=== PATIENT | female | born 1935 | race African-American/Black ===

== ENCOUNTER 2019-05-12 12:59 | Inpatient (IN) | payer MEDICARE, OTHER ==
[~2019-05-12] VITALS: Ht 149.9 cm; Wt 62.4 kg
[2019-05-12 12:59] VITALS: BP 214/100
[~2019-05-12 12:59] MED LIST: AMLODIPINE BESY10 MG ORAL; ATORVASTATIN CA40 MG ORAL; CATAPRES-TTS-21 EA TDERMAL; LOSARTAN-HCTZ1 EAC1 ORAL; METOPROLOL SUCC50 MG ORAL; MINOXIDIL2.5 MG PO; NKM
--- NOTE | 2019-05-12 13:01 | NUR ---
ED Nurse Note: pt brought in to ER from home by ambulance due to abdominal pain 10/16. pt aao x4 and bedridden at this moment. calm and cooperative. skin clean and intact. large hernia on lower abdoman noted. per pt, she has had that since she gave to the last son but could not recall the year. per pt, it has been more than 30 years. no acute distress noted at this moment. no N/V/D at this moment. pt is in gown and on secured entrance monitor. high blood pressure and hernia reported to ERPA.
--- NOTE | 2019-05-12 13:10 | NUR ---
ED Nurse Note: x-ray at bedside.
[2019-05-12] MEDS ORDERED: Omnipaque-300 100ml vial INJ PRN ×2 (13:15)
[2019-05-12] MEDS ORDERED: Ketorolac 30mg Inj IV ONE (13:15)
[2019-05-12 13:33] LABS: EOSINOPHILS % (AUTO) 0.1 % (0.0-3.0); HEMATOCRIT 41.5 % (37.0-47.0); HEMOGLOBIN 13.9 G/DL (12.0-16.0); LYMPHOCYTES % (AUTO) 11.8 % (20.0-45.0); MEAN CORPUSCULAR VOLUME 94 FL (80-99); MONOCYTES % (AUTO) 7.4 % (1.0-10.0); NEUTROPHILS % (AUTO) 79.7 % (45.0-75.0); PLATELET COUNT 175 K/UL (150-450); RED BLOOD COUNT 4.42 M/UL (4.20-5.40); RED CELL DISTRIBUTION WIDTH 12.1 % (11.6-14.8); WHITE BLOOD COUNT 9.9 K/UL (4.8-10.8)
--- NOTE | 2019-05-12 13:37 | Diagnostic Imaging Report ---
Indication: Chest and abdominal pain Comparison: 07/22/2015 A single view chest radiograph was obtained. Findings: No definite infiltrate or pulmonary vascular congestion identified. The heart is enlarged. The aorta is mildly enlarged consistent with atherosclerotic vascular disease. The bones are osteopenic. Impression: No acute disease
[2019-05-12 13:54] LABS: ANION GAP 11 mmol/L (5-15); BLOOD UREA NITROGEN 32 mg/dL (7-18); CALCIUM 10.3 MG/DL (8.5-10.1); CARBON DIOXIDE 36 MMOL/L (21-32); CHLORIDE 98 MMOL/L (98-107); CREATININE 1.8 MG/DL (0.55-1.30); POTASSIUM 3.7 MMOL/L (3.5-5.1); SODIUM 145 MMOL/L (136-145)
[2019-05-12 14:00] LABS: ALANINE AMINOTRANSFERASE 13 U/L (12-78); ALBUMIN 4.3 G/DL (3.4-5.0); ALBUMIN/GLOBULIN RATIO 0.8 (1.0-2.7); ALKALINE PHOSPHATASE 55 U/L (46-116); ASPARTATE AMINO TRANSFERASE 32 U/L (15-37); BILIRUBIN,TOTAL 0.6 MG/DL (0.2-1.0)
--- NOTE | 2019-05-12 14:01 | NUR ---
ED Nurse Note: pt taken to CT scan in stable condition.
--- NOTE | 2019-05-12 14:15 | NUR ---
ED Nurse Note: pt came back from CT scan in stable condition.
[2019-05-12 14:25] LABS: APPEARANCE,URINE CLOUDY; BILIRUBIN, URINE NEGATIVE (NEGATIVE); GLUCOSE, URINE (UA) NEGATIVE (NEGATIVE); KETONES,URINE 1+ (NEGATIVE); LEUKOCYTE ESTERASE ,URINE 2+ (NEGATIVE); NITRITE,URINE NEGATIVE (NEGATIVE); PH,URINE 7 (4.5-8.0); PROTEIN,URINE 3+ (NEGATIVE); UROBILINOGEN,URINE 1 MG/DL (0.0-1.0)
[2019-05-12 14:27] LABS: COLOR,URINE YELLOW
--- NOTE | 2019-05-12 14:40 | Emergency Room Report ---
History of Present Illness General Chief Complaint: Abdominal Pain Source: EMS (Tejas Craig) Present Illness HPI 83-year-old female with history of hypertension, diabetes who reports has not been taking any blood pressure medication or diabetes medication for many months now as well as an enlarged ventral abdominal hernia here complaining of 1 day of a 10 out of 10 abdominal pain with one bout of nonbloody emesis. Denies diarrhea and constipation however reports of feeling fluctuant. Denies fever and chills, chest pain, shortness of breath, palpitation, headache and dizziness. Has not taken any medication for symptom relief. Patient reports that her hernia has been increasing in size for many years now has been told that he needs to go on her operation has refused so. 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 Patient denies any urinary symptoms. Denies history of tobacco smoke, alcohol intake, or drug use. Patient' pcp is Dr. mari. Patient presents to ER with blood pressure of 218/111. (Tejas Craig) Allergies: Coded Allergies: NO KNOWN ALLERGIES (Unverified Allergy, Unknown, 07/22/15) Patient History Past Medical History: see triage record Past Surgical History: unable to obtain Pertinent Family History: none Now: No Immunizations: UTD Reviewed Nursing Documentation: PMH: Agreed; PSxH: Agreed (Tejas Craig) Nursing Documentation-PMH Past Medical History: No History, Except For Hx Cardiac Problems: Yes Hx Hypertension: Yes Hx Cancer: No Hx Gastrointestinal Problems: No Hx Neurological Problems: No Hx Cerebrovascular Accident: Yes (Tejas Craig) Review of Systems All Other Systems: negative except mentioned in HPI (Tejas Craig) Physical Exam Vital Signs Date Time Temp Pulse Resp B/P (MAP) Pulse Ox O2 Delivery O2 Flow Rate FiO2 05/12/19 12:50 97.9 88 17 201/103 (135) 98 Room Air Sp02 EP Interpretation: reviewed, abnormal - elevated BP General Appearance: alert, GCS 15, mild distress, thin Head: normocephalic, atraumatic Eyes: left eye other - blind ENT: hearing grossly normal, normal pharynx, no angioedema, normal voice Neck: full range of motion, supple, thyroid normal, no meningismus, no bony tend, no carotid bruits, supple/symm/no masses Respiratory: chest non-tender, lungs clear, normal breath sounds, no rhonchi, no wheezing, speaking full sentences Cardiovascular #1: regular rate, rhythm, no edema, no murmur, normal capillary refill Cardiovascular #2: 2+ carotid (R), 2+ carotid (L), 2+ radial (R), 2+ radial (L) Gastrointestinal: normal bowel sounds, non tender, soft, no guarding, no rebound, distended, hernia - enlarged ventral Rectal: deferred Genitourinary: no CVA tenderness Musculoskeletal: back normal, gait/station normal, normal range of motion, non- tender, no calf tenderness Neurologic: alert, oriented x3, responsive, motor strength/tone normal, sensory intact, speech normal Psychiatric: judgement/insight normal, memory normal, mood/affect normal, no suicidal/homicidal ideation Skin: no rash Lymphatic: no adenopathy (Tejas Craig) Medical Decision Making PA Attestation All my diagnosis and treatment plans were reviewed ad discussed with my supervising physician Dr. Ch (Tejas Craig) Medicare Attestation The history of Ericka Valles has been reviewed and management options for her have been examined and discussed by Srikanth Mcdonald. I have personally examined and interviewed the patient. (Srikanth Mcdonald MD) Diagnostic Impression: Primary Impression: Obstructed ventral hernia Additional Impressions: Elevated brain natriuretic peptide (BNP) level UTI (urinary tract infection) ER Course 83-year-old female with history of hypertension, diabetes who reports has not been taking any blood pressure medication or diabetes medication for many months now as well as an enlarged ventral abdominal hernia here complaining of 1 day of a 10 out of 10 abdominal pain with one bout of nonbloody emesis. Denies diarrhea and constipation however reports of feeling fluctuant. Denies fever and chills, chest pain, shortness of breath, palpitation, headache and dizziness. Has not taken any medication for symptom relief. Patient reports that her hernia has been increasing in size for many years now has been told that he needs to go on her operation has refused so. 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 Patient denies any urinary symptoms. Denies history of tobacco smoke, alcohol intake, or drug use. Patient' pcp is Dr. mari. Patient presents to ER with blood pressure of 218/111. Ddx considered but are not limited to: appendicitis, cholecystis, gastritis, gastroenteritis, UTI, pyelonephritis, SBO, diverticulitis, incarcerated hernia, nonreducible hernia, reducible hernia Vital signs: are WNL, pt. is afebrile H&PE are most consistent with: Obstructing ventral hernia, elevated BNP ORDERS: abdominal CT, abdominal pain set, EKG, troponin ED INTERVENTIONS: NS bolus, Pepcid, Toradol Patient was admitted with diagnosis of to under supervision of Dr.: Michael pt stable at time of admission (Tejas Craig) ER Course i evaluated this patient with MUSA Pittman. I agree with her management and decision to admit the patient for renal insufficiency and bowel obstruction secondary to hernia. Dr Bee contacted. Dr Mari contacted for admission. (Srikanth Mcdonald MD) EKG Diagnostic Results Rate: normal Rhythm: NSR ST Segments: no acute changes Other Impression No acute ST changes (Tejas Craig) Chest X-Ray Diagnostic Results Chest X-Ray Diagnostic Results : Chest X-Ray Ordered: Yes # of Views/Limited/Complete: 1 View Indication: Other EP Interpretation: Yes PA Xray: Interpretation reviewed, by supervising MD, and agrees with findings. Interpretation: no consolidation, no effusion, no pneumothorax Impression: No acute disease Electronically Signed by: Tejas Cutler PA-C (Tejas Craig) CT/MRI/US Diagnostic Results CT/MRI/US Diagnostic Results : Imaging Test Ordered: CT abd pelvis Impression Obstructed ventral hernia (Tejas Craig) Last Vital Signs Date Time Temp Pulse Resp B/P (MAP) Pulse Ox O2 Delivery O2 Flow Rate FiO2 05/12/19 14:21 97.9 05/12/19 13:32 215/100 05/12/19 12:59 88 17 Room Air 05/12/19 12:59 98 (Tejas Craig) Status: improved (Srikanth Mcdonald MD) Disposition: ADMITTED INPATIENT Condition: Serious Tejas Craig May 12, 2019 14:40 Srikanth Mcdonald MD May 12, 2019 16:32
--- NOTE | 2019-05-12 14:41 | Diagnostic Imaging Report ---
Indication: Abdominal pain Technique: Continuous helical transaxial imaging of the abdomen and pelvis was obtained from the lung bases to the pubic symphysis. No intravenous contrast was administered. Coronal 2-D reformats were also obtained. Automatic Exposure Control was utilized. Total Dose length Product (DLP): 724.[address] Dose Index Volume (CTDIvol): 13.8 mGy Comparison: none Findings: There is a large ventral hernia containing much of the stomach, duodenum, loops of proximal small bowel and the entirety of the right hemicolon and transverse colon. The hernia sac is about 20 x 20 x 11 cm. The aperture or neck of the hernia at the level of the abdominal wall is about 5 x 6 cm. There is moderate distention of the proximal portion of the stomach which includes the cardia fundus and part of the body which is also quite distended. There may be partial obstruction secondary to the hernia at the level of the stomach. However the small bowel loops appear normal in caliber both proximal and distal to the hernia. There is moderate stool demonstrated in the colon which also does not appear obstructive. There is no pneumatosis or free air. There is no evidence of abscess. The aorta is moderately calcified. There are calcifications within the liver and spleen consistent with old granulomatous disease. Gallbladder is unremarkable. There are hypodensities within both kidneys not adequately evaluated but probably cysts. There is no hydronephrosis. Diverticula noted in the sigmoid colon. The lung bases are essentially clear. Atrophic uterus noted. IMPRESSION: Large ventral hernia containing most of the stomach, small bowel and much of the proximal colon. The proximal stomach not contained within the hernia is dilated and therefore there may be some impediment to flow or partial obstruction at the level of the stomach. Suggest nasogastric tube placement. 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 Diverticulosis of the sigmoid colon. The CT scanner at [facility] is accredited by the [employer] and the scans are performed using dose optimization techniques as appropriate to a performed exam including Automatic Exposure control.
[2019-05-12 15:00] VITALS: BP 221/95
[2019-05-12 15:48] VITALS: BP 180/75
[2019-05-12] MEDS ORDERED: cefTRIAXone 1 GM in NS 55 ML IVPB ONE (16:00)
[2019-05-12] MEDS ORDERED: ZANTAC150 MG ORAL (16:26)
[2019-05-12] MEDS ORDERED: FERROUS SULFAT325 M2 ORAL (16:26)
[2019-05-12] MEDS ORDERED: NORVASC10 MG ORAL (16:26)
--- NOTE | 2019-05-12 16:43 | NUR ---
ED Nurse Note: Surgeon Rohit at bedside.
--- NOTE | 2019-05-12 16:55 | NUR ---
ED Nurse Note: report given to ARTHUR Payne by Jae Ortega RN
--- NOTE | 2019-05-12 17:05 | Consultation ---
History of Present Illness General Date patient seen: May 12, 2019 Reason for Hospitalization: Abdominal Pain Present Illness HPI This is a very pleasant 83-year-old female with multiple medical comorbidities who presented to the emergency department at [facility] complaining of abdominal cramping nausea and emesis. Patient states that yesterday morning she began to have some abdominal cramping followed by intermittent nausea and a few episodes of nonbloody emesis. Patient lives at home with her son and assisted by her daughter who is currently present in the emergency department. She has intermittent episodes occasionally of similar events but this 1 felt to be worse and came in for evaluation. States last bowel movement was yesterday normal but has not had one since. Feels constipated. Has not had significant flatus. In ED had a CT scan with large ventral hernia with bowel stomach and colonic contents. Surgery called to evaluate and assist with care. Patient seen, patient evaluated, chart reviewed. Allergies: Coded Allergies: NO KNOWN ALLERGIES (Unverified Allergy, Unknown, 07/22/15) Medication History Scheduled Amlodipine Besylate (Norvasc), 10 MG ORAL DAILY, (Reported) Amlodipine Besylate* (Amlodipine Besylate*), 10 MG ORAL DAILY, (Reported) Atorvastatin Calcium* (Atorvastatin Calcium*), 80 MG ORAL BEDTIME, (Reported) Clonidine HCl (Catapres-Tts 2), 1 PATCH TDERMAL QWEEK Metoprolol Succinate* (Metoprolol Succinate*), 50 MG ORAL QHS, (Reported) Ranitidine Hcl* (Zantac*), 150 MG ORAL DAILY, (Reported) Miscellaneous Medications Ferrous Sulfate (Ferrous Sulfate), 325 MG ORAL, (Reported) Patient History History Provided By: Patient, Family Member, Medical Record, PMD Healthcare decision maker Resuscitation status Advanced Directive on File Past Medical/Surgical History Past Medical/Surgical History: (1) Non-ST elevated myocardial infarction (2) Gastrointestinal hemorrhage (3) UTI (urinary tract infection) (4) Obstructed ventral hernia (5) Elevated brain natriuretic peptide (BNP) level (6) hernia Review of Systems Review of Symptoms General ROS: no weight loss or fever Psychological ROS: no depression or mood changes, no memory loss Ophthalmic ROS: no visual changes or eye irritation ENT ROS: no nasal congestion, hearing loss, dizziness Allergy and Immunology ROS: no allergic symptoms or urticaria Hematological and Lymphatic ROS: no swollen glands, unusual bleeding or bruising Endocrine ROS: no polyuria, polydipsia, weight changes, temperature intolerance Respiratory ROS: no cough, shortness of breath, or wheezing Cardiovascular ROS: no chest pain or dyspnea on exertion Gastrointestinal ROS: abdominal pain, bright red blood in stool. Musculoskeletal ROS: no myalgias or arthralgias Neurological ROS: no TIA or stroke symptoms Dermatological ROS: no new or changing skin lesions, rashes or pruritis Physical Exam Physical Exam General appearance: alert, cooperative, no distress, appears stated age Head: Normocephalic, without obvious abnormality, atraumatic Eyes: conjunctivae/corneas clear. PERRL, EOM's intact. Fundi benign Throat: Lips, mucosa, and tongue normal. Teeth and gums normal Neck: supple, symmetrical, trachea midline, no adenopathy, thyroid: not enlarged, symmetric, no tenderness/mass/nodules, no carotid bruit and no JVD Lungs: clear to auscultation bilaterally Heart: regular rate and rhythm, S1, S2 normal, no murmur, click, rub or gallop Abdomen: soft, minimal tender. Bowel sounds decreased. No masses, no organomegaly large ventral hernia with loss of domain. Bowel contents reducible. Extremities: extremities normal, atraumatic, no cyanosis or edema Pulses: 2+ and symmetric Skin: Skin color, texture, turgor normal. No rashes or lesions Neurologic: Grossly normal Last 24 Hour Vital Signs Date Time Temp Pulse Resp B/P (MAP) Pulse Ox O2 Delivery O2 Flow Rate FiO2 05/12/19 15:48 180/75 05/12/19 15:19 221/95 05/12/19 15:00 98.0 87 17 221/95 99 Room Air 05/12/19 14:21 97.9 05/12/19 13:32 215/100 05/12/19 12:59 88 17 Room Air 05/12/19 12:59 97.9 91 17 214/100 98 Room Air 05/12/19 12:50 97.9 88 17 201/103 (135) 98 Room Air Laboratory Tests Test 05/12/19 13:17 05/12/19 13:40 05/12/19 14:45 White Blood Count 9.9 K/UL (4.8-10.8) Red Blood Count 4.42 M/UL (4.20-5.40) Hemoglobin 13.9 G/DL (12.0-16.0) Hematocrit 41.5 % (37.0-47.0) Mean Corpuscular Volume 94 FL (80-99) Mean Corpuscular Hemoglobin 31.5 PG (27.0-31.0) H Mean Corpuscular Hemoglobin Concent 33.5 G/DL (32.0-36.0) Red Cell Distribution Width 12.1 % (11.6-14.8) Platelet Count 175 K/UL (150-450) Mean Platelet Volume 6.3 FL (6.5-10.1) L Neutrophils (%) (Auto) 79.7 % (45.0-75.0) H Lymphocytes (%) (Auto) 11.8 % (20.0-45.0) L Monocytes (%) (Auto) 7.4 % (1.0-10.0) Eosinophils (%) (Auto) 0.1 % (0.0-3.0) Basophils (%) (Auto) 1.0 % (0.0-2.0) Prothrombin Time 10.7 SEC (9.30-11.50) Prothromb Time International Ratio 1.0 (0.9-1.1) Activated Partial Thromboplast Time 20 SEC (23-33) L Sodium Level 145 MMOL/L (136-145) Potassium Level 3.7 MMOL/L (3.5-5.1) Chloride Level 98 MMOL/L (98-107) Carbon Dioxide Level 36 MMOL/L (21-32) H Anion Gap 11 mmol/L (5-15) Blood Urea Nitrogen 32 mg/dL (7-18) H Creatinine 1.8 MG/DL (0.55-1.30) H Estimat Glomerular Filtration Rate mL/min (>60) Glucose Level 120 MG/DL (74-106) H Calcium Level 10.3 MG/DL (8.5-10.1) H Total Bilirubin 0.6 MG/DL (0.2-1.0) Aspartate Amino Transf (AST/SGOT) 32 U/L (15-37) Alanine Aminotransferase (ALT/SGPT) 13 U/L (12-78) Alkaline Phosphatase 55 U/L (46-116) Troponin I 0.053 ng/mL (0.000-0.056) 0.097 ng/mL (0.000-0.056) Pro-B-Type Natriuretic Peptide 8394 pg/mL (0-125) H Total Protein 10.0 G/DL (6.4-8.2) H Albumin 4.3 G/DL (3.4-5.0) Globulin 5.7 g/dL Albumin/Globulin Ratio 0.8 (1.0-2.7) L Lipase 237 U/L (73-393) Urine Color Yellow Urine Appearance Cloudy Urine pH 7 (4.5-8.0) Urine Specific [place] 1.010 (1.005-1.035) Urine Protein 3+ (NEGATIVE) H Urine Glucose (UA) Negative (NEGATIVE) Urine Ketones 1+ (NEGATIVE) H Urine Blood 2+ (NEGATIVE) H Urine Nitrite Negative (NEGATIVE) Urine Bilirubin Negative (NEGATIVE) Urine Urobilinogen 1 MG/DL (0.0-1.0) H Urine Leukocyte Esterase 2+ (NEGATIVE) H Urine RBC 2-4 /HPF (0 - 2) H Urine WBC 15-20 /HPF (0 - 2) H Urine Squamous Epithelial Cells Few /LPF (NONE/OCC) Urine Bacteria Many /HPF (NONE) H Urine Opiates Screen Negative (NEGATIVE) Urine Barbiturates Screen Negative (NEGATIVE) Phencyclidine (PCP) Screen Negative (NEGATIVE) Urine Amphetamines Screen Negative (NEGATIVE) Urine Benzodiazepines Screen Negative (NEGATIVE) Urine Cocaine Screen Negative (NEGATIVE) Urine Marijuana (THC) Screen Negative (NEGATIVE) Height (Feet): 4 Height (Inches): 11.00 Weight (Pounds): 120 Medications Current Medications Medications (Trade) Dose Ordered Sig/Kelly Route PRN Reason Start Time Stop Time Status Last Admin Dose Admin Barium Sulfate (Readi-Cat 2) 450 ml NOW PRN ORAL Radiology Procedure 05/12/19 13:15 05/14/19 13:02 Barium Sulfate (Readi-Cat 2) 450 ml NOW PRN ORAL Radiology Procedure 05/12/19 13:15 05/14/19 13:02 Iohexol (OMNIPAQUE-300 100ml) 100 ml NOW PRN INJ Radiology Procedure 05/12/19 13:15 05/14/19 13:02 Iohexol (OMNIPAQUE-300 100ml) 100 ml NOW PRN INJ Radiology Procedure 05/12/19 13:15 05/14/19 13:02 Sodium Chloride 1,000 ml @ 100 mls/hr Q10H ONCE IV 05/12/19 12:55 05/12/19 22:54 05/12/19 13:52 Assessment/Plan Problem List: (1) Obstructed ventral hernia Assessment & Plan: This is a 83-year-old female with known history of large ventral hernia which comes in with abdominal discomfort cramping nausea and emesis. Patient's daughter at the bedside. And talking with them patient has had her ventral hernia for many years now and has not considered repair. Patient's daughter states that at some point it was larger but is she has been losing weight is become smaller. Cramping began yesterday morning followed by nausea and nonbloody emesis. Has not had emesis today. Came in for evaluation given the symptoms. CT scan demonstrated a large ventral hernia with bowel gastric and small bowel colonic contents as well. On bedside evaluation patient has a very large ventral hernia with noted bowel contents. Patient likely has significant loss of domain given her size compared and relative to the size of the hernia and contents of the abdominal wall hernia. Bowel sounds are audible and hernia contents are reducible though the entire contents of the hernia cannot be reduced into the abdomen given the loss of domain. Fortunately no significant strangulation tenderness or obstruction identified at this time. Potentially constipation. Patient should be admitted for monitoring and Serial exams. Abdominal KUB ordered for tomorrow morning. IV fluids Trend labs We will follow with recommendations I had a long discussion with the patient and her daughter at bedside. If strangulation or incarceration and unreducible requiring urgent surgery they are okay and amenable to it but no elective surgery or repair is wanted by the patient or family. Thank you for allowing me to participate in patient's care ICD Codes: K43.6 - Other and unspecified ventral hernia with obstruction, without gangrene SNOMED: [id number], [id number] Tony Bee May 12, 2019 17:05
--- NOTE | 2019-05-12 17:05 | NUR ---
ED Nurse Note: pt transferred to Telemetry unit with 1 RN and 1 data entry technician in stable condition.
[2019-05-12] MEDS ORDERED: Milk of Magnesia 30ml Ud ORAL PRN (17:15)
--- NOTE | 2019-05-12 17:20 | NUR ---
NURSE NOTES: Pt transferred safely to floor from ED. Belongings list verified. Patient has only hat. security monitor applied and pt is SR in the 90s. Blood pressure is elevated @ 178/80. A+OX4, complains of 3/10 abdominal pain, no SOB noted. IV site is patent and intact, saline locked. Bed is at lowest position, brakes engaged, siderails x2, bed alarm on, and call light within reach. Pt is in stable condition at this time. Most admission orders in; will call doctor about DVT proph and PRN bp/pain medications.
[2019-05-12] MEDS ORDERED: SIMBRINZA 1%-0.28 ML RIGHT EYE (17:29)
[2019-05-12 17:37] VITALS: BP 178/85
[2019-05-12] MEDS ORDERED: Morphine Sulfate 2mg/ml Inj(IV/IM USE ONLY) IVP PRN (18:15)
[2019-05-12] MEDS: Docusate 100mg cap ORAL SCH (18:25)
--- NOTE | 2019-05-12 18:35 | NUR ---
NURSE NOTES: Sacral hyperpigmentation noted. Bilateral heels boggy. Patient states right heel is painful when touched. Heels elevated and covered in optifoam.
--- NOTE | 2019-05-12 19:06 | NUR ---
NURSE NOTES: Received patient from ARTHUR Payne, patient in stable condition, AOx4, denies pain at this time, left eye blindness, IV site on right forearm, g22, asymptomatic, patent, intact, bed low&locked, call light within reach, will continue to monitor and reassess.
--- NOTE | 2019-05-12 19:11 | NUR ---
CASE MANAGEMENT: REVIEW 83 Y/O FEMALE BIBA FROM HOME . N/V/D CC: ABD PAIN SI: HERNIA . BOWEL OBSTRUCTION T 99.3 HR 87 RR 17 BP 221/95 SAT 99% ROOM AIR BUN 32 CR 1.8 TROP 0.097 BNP 8394 IS: CLONIDINE PO X1 PEPCID IV X1 TORADOL IV X1 PATIENT ADMITTED TO TELEMETRY UNIT 05/12/2019 DCP: PATIENT IS FROM HOME
--- NOTE | 2019-05-12 19:15 | NUR ---
HAND-OFF: Report given to ARTHUR Matos. Patient is in stable condition; plan of care endorsed.
[2019-05-12 20:00] VITALS: BP 131/71
[2019-05-13] VITALS: BP 134/75
[2019-05-13] MEDS: D5 1/2NS w/KCl 20mEq 1,000 ML IV SCH ×5 (00:20→17:15)
[2019-05-13] MEDS: Metoprolol Tartrate 10 MG in D5W 55 ML IVPB SCH ×4 (00:21→17:14)
--- NOTE | 2019-05-13 03:45 | Consultation ---
DATE OF CONSULTATION: 05/12/2019 CARDIOLOGY CONSULTATION CONSULTING PHYSICIAN: Raghu Mari M.D. REASON FOR CONSULTATION: Malignant range hypertension. HISTORY OF PRESENT ILLNESS: This 83-year-old female has a known history of diverticulosis and chronic large ventral hernia that she has refused to have repaired for at least 20 years under my care. She has had episodic abdominal cramping with nausea and vomiting, but very rarely. However, her symptoms have been persisting over the past day prompting her to come to the emergency room. The patient has not had any bloody stools or hematemesis and had her last bowel movement yesterday. She notes that her nausea and vomiting has been more severe than usual. The patient has always been reluctant to seek medical attention and has requested conservative management in every regard of her care over the last year. The patient was last hospitalized here about five years ago with a diverticular bleed and was treated conservatively with no recurrence since. ALLERGIES: None. PAST MEDICAL HISTORY: Includes hypertension, hypertensive heart disease, cataracts, iron deficiency with anemia, hyperlipidemia, diverticulosis, B12 deficiency due to pernicious anemia, chronic diastolic congestive heart failure, cerebrovascular disease with prior cerebrovascular accident and left-sided weakness, degenerative aortic valve stenosis, and chronic kidney disease due to hypertensive nephrosclerosis. MEDICATIONS: Reviewed and reconciled. FAMILY HISTORY: Noncontributory. SOCIAL HISTORY: Negative for smoking, alcohol, or substance abuse. REVIEW OF SYSTEMS: No fevers or chills. She has refused a flu vaccination this season and in the past. She has poor vision. She is hard of hearing. Her mobility is impaired due to prior stroke. There is no history of seizures. There is no history of diabetes or thyroid disorder. She is on anti-lipid drugs. She has not had any a kidney failure, but has had urinary tract infections in the past. Cardiovascular status is notable for significant hypertension, on multiple drugs with no malignant range in the past. There is no history of flow-limiting coronary disease. Her most recent echocardiogram revealed normal ejection fraction with concentric hypertrophy and a diastolic relaxation abnormality, and moderate to severe aortic stenosis. Her last colonoscopy was following her diverticular bleed at about 5 or 6 years ago. PHYSICAL EXAMINATION: GENERAL: Appears stated age. No acute distress. VITAL SIGNS: Blood pressure up to 221/95, heart rate 87, respiratory rate 17, and afebrile. HEENT: Conjunctivae are pink. Bilateral cataracts. Oropharynx clear. NECK: Supple. Jugular venous pressure normal. LUNGS: Clear. BREASTS: No breast masses. CARDIAC: Regular rhythm and rate. Normal S1 and S2 with a fourth heart sound and a 1/6 systolic murmur at the apex. ABDOMEN: Soft. There is a huge ventral hernia that has been reduced by the surgeon. There is no guarding. There is mild tenderness. EXTREMITIES: Without edema and good distal pulses are noted. Left hemiparesis is seen. LABORATORY DATA: White count 9.9 and hemoglobin 13.9. Urinalysis with 10 to 20 white cells. BUN is 32, creatinine 1.8, sodium 145, potassium 3.7, and bicarb 36. Pro-natriuretic peptide is 8300 and troponin is 0.053, repeated 0.097. IMPRESSION: 1. Large ventral hernia, now status post reduction probable component of bowel obstruction, improving. 2. History of diverticulosis. 3. Acute myocardial ischemia. 4. Hypovolemia and dehydration. 5. Acute on chronic kidney injury. 6. 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 PLAN: 1. Cardiac monitoring. 2. Intravenous antihypertensives. 3. Serial troponin. 4. NPO for now. 5. Hypotonic IV fluid hydration. 6. DVT prophylaxis. 7. Empiric antimicrobials. Raghu Mari M.D. DR: OLIVER JOB#: [id number] CC: MELISSA
[2019-05-13 04:00] VITALS: BP 116/61
[2019-05-13 06:44] LABS: BASOPHILS % (AUTO) 0.5 % (0.0-2.0); EOSINOPHILS % (AUTO) 0.3 % (0.0-3.0); HEMATOCRIT 30.2 % (37.0-47.0); HEMOGLOBIN 9.9 G/DL (12.0-16.0); LYMPHOCYTES % (AUTO) 22.3 % (20.0-45.0); MEAN CORPUSCULAR VOLUME 94 FL (80-99); MONOCYTES % (AUTO) 11.3 % (1.0-10.0); NEUTROPHILS % (AUTO) 65.7 % (45.0-75.0); PLATELET COUNT 174 K/UL (150-450); RED CELL DISTRIBUTION WIDTH 11.4 % (11.6-14.8); WHITE BLOOD COUNT 6.8 K/UL (4.8-10.8)
[2019-05-13 07:14] LABS: ALANINE AMINOTRANSFERASE 12 U/L (12-78); ALBUMIN/GLOBULIN RATIO 0.8 (1.0-2.7); ALKALINE PHOSPHATASE 35 U/L (46-116); AMYLASE 164 U/L (25-115); ANION GAP 4 mmol/L (5-15); ASPARTATE AMINO TRANSFERASE 21 U/L (15-37); BILIRUBIN,TOTAL 0.5 MG/DL (0.2-1.0); BLOOD UREA NITROGEN 43 mg/dL (7-18); CALCIUM 8.1 MG/DL (8.5-10.1); CARBON DIOXIDE 34 MMOL/L (21-32); CHLORIDE 103 MMOL/L (98-107); CREATININE 2.4 MG/DL (0.55-1.30); POTASSIUM 3.6 MMOL/L (3.5-5.1); SODIUM 141 MMOL/L (136-145)
--- NOTE | 2019-05-13 07:27 | NUR ---
NURSE NOTES: Troponin 0.555 , Dr. Harris made aware, awaiting call back. Endorsed to incoming nurse
--- NOTE | 2019-05-13 07:30 | NUR ---
NURSE NOTES: Received report from ARTHUR Matos. The patient is resting on the bed without acute distress or shortness of breath. The patient's bed in the lowest position, call light in reach, and fall and aspiration precaution reinforced. The patient is kept in NPO and scheduled for KUB today. Will continue plan of care.
--- NOTE | 2019-05-13 07:47 | NUR ---
HAND-OFF: Report given to ARTHUR Hendrix, patient in stable condition, plan of care endorsed.
[2019-05-13 08:00] VITALS: BP 117/58
--- NOTE | 2019-05-13 08:00 | NUR ---
NURSE NOTES: Notified to Dr. Mari and Dr. Harris regarding critical lab results and change in the patient's condition. Notified significant drop in hemoglobin level and significant elevation in Troponin. Also notified abnormal lab result including BUN, Cr, Ca, BNP, Amylase level. Dr. Harris ordered OB stool, Iron panel, another Troponin level, and 2D echo. Also notified Dr. Harris regarding significant drop in blood pressure without any acute symptoms. The patient denies of chest pain, shortness of breath, or dizziness at this time. Will carry out the order as soon as possible. Will continue plan of care.
[2019-05-13] MEDS ORDERED: Metoprolol Tartrate 10 MG in D5W 55 ML IVPB ONE ×4 (08:30)
--- NOTE | 2019-05-13 08:42 | NUR ---
RADIOLOGY DEPT., ABDOMEN X-RAY COMPLETED.-P.DYE
--- NOTE | 2019-05-13 08:49 | Diagnostic Imaging Report ---
Indication: Abdominal pain Technique: Supine view of the abdomen Comparison: none Findings: The lower abdomen/upper pelvis wall is focally protuberant. Unremarkable bowel gas pattern. No masses or unusual calcifications Impression: No acute abnormality Focally protuberant lower abdomen/upper pelvis wall, could be physiologic but the possibility of a broad-based ventral hernia should be considered
[2019-05-13] MEDS: Docusate 100mg cap ORAL SCH ×2 (08:59→17:14)
[2019-05-13 09:06] LABS: % IRON SATURATION 47 % (15-50); IRON 101 ug/dL (50-175); TOTAL IRON BINDING CAPACITY 217 ug/dL (250-450)
--- NOTE | 2019-05-13 10:30 | NUR ---
NURSE NOTES: Dr. Bee at the bedside assessed the patient. As the patient's abdominal tenderness got better, Dr. Bee ordered the diet to be changed from NPO to full liquid diet. Carried out the order. Also notified Dr. Bee regarding abnormal lab result and changes in the patient condition including drop in hemoglobin level, elevation in Troponin level, and drop in blood pressure. The patient is stable without acute distress or shortness of breath. Will continue plan of care.
--- NOTE | 2019-05-13 11:30 | NUR ---
NURSE NOTES:WOUND CARE NOTES:Pt presented on admission with non-blanching erythema sacrum, L buttocks and L ischium. an area of shearing noted to sacral cleft. Pt denied tenderness when affected areas palpated. Both heels are boggy with non-blanching erythema. Pt denied tenderness when each heels palpated. No other skin concerns noted. Tx.Plan: Apply Moisture Barrier Paste to buttocks with each incontinence care. Apply Moisture Barrier Paste to Sacrum. Cover with Optifoam drsg.Change every 3 days and prn. Apply Cavilon Skin Barrier to both heels. Cover each heel with Optifoam drsg. Change every 7 days and prn. Reposition at least every 2hours or as tolerated. Off-load heels with pillows.
[2019-05-13 12:00] VITALS: BP 141/68
--- NOTE | 2019-05-13 12:36 | NUR ---
NURSE NOTES: The patient is stable without acute distress or shortness of breath. The patient's daughter at the bedside supporting the patient. Per Dr. Bee's order, the patient started full liquid diet. The patient is tolerating well. Will continue plan of care.
--- NOTE | 2019-05-13 12:47 | Surgery Progress Note ---
Surgery Progress Note Subjective Symptoms: improved Additional Comments doing well no complaints no n/v/f/c comfortable no abd pain hungry Objective Last 24 Hour Vital Signs Date Time Temp Pulse Resp B/P (MAP) Pulse Ox O2 Delivery O2 Flow Rate FiO2 05/13/19 12:06 68 141/68 05/13/19 12:00 98.1 68 18 141/68 (92) 98 05/13/19 09:00 Room Air 05/13/19 08:00 98.1 72 18 117/58 (77) 95 05/13/19 08:00 61 05/13/19 06:00 59 111/63 05/13/19 04:00 97.0 66 18 116/61 (79) 97 05/13/19 04:00 63 05/13/19 00:21 92 131/71 05/13/19 00:00 74 05/13/19 00:00 98.2 92 18 134/75 (94) 97 05/12/19 21:00 Room Air 05/12/19 20:00 96 05/12/19 20:00 98.2 92 18 131/71 (91) 97 05/12/19 17:37 99.3 96 18 178/85 (116) 97 05/12/19 17:05 98.0 79 17 170/71 99 Room Air 05/12/19 16:57 Room Air 05/12/19 15:48 180/75 05/12/19 15:19 221/95 05/12/19 15:00 98.0 87 17 221/95 99 Room Air 05/12/19 14:21 97.9 05/12/19 13:32 215/100 05/12/19 12:59 88 17 Room Air 05/12/19 12:59 97.9 91 17 214/100 98 Room Air 05/12/19 12:50 97.9 88 17 201/103 (135) 98 Room Air I&O Intake and Output 05/12/19 05/13/19 19:00 07:00 Intake Total 1055 ml Balance 1055 ml Intake Oral 0 ml IV Total 1055 ml # Voids 1 # Bowel Movements 1 Cardiovascular: RSR Respiratory: clear Abdomen: soft, non-tender, present bowel sounds, other - larger hernia smaller today with some reduction but loss of domain , non-distended Extremities: no cyanosis Laboratory Tests Test 05/12/19 13:17 05/12/19 13:40 05/12/19 14:45 05/13/19 06:15 White Blood Count 9.9 K/UL (4.8-10.8) 6.8 K/UL (4.8-10.8) Red Blood Count 4.42 M/UL (4.20-5.40) 3.20 M/UL (4.20-5.40) L Hemoglobin 13.9 G/DL (12.0-16.0) 9.9 G/DL (12.0-16.0) L Hematocrit 41.5 % (37.0-47.0) 30.2 % (37.0-47.0) L Mean Corpuscular Volume 94 FL (80-99) 94 FL (80-99) Mean Corpuscular Hemoglobin 31.5 PG (27.0-31.0) H 30.9 PG (27.0-31.0) Mean Corpuscular Hemoglobin Concent 33.5 G/DL (32.0-36.0) 32.7 G/DL (32.0-36.0) Red Cell Distribution Width 12.1 % (11.6-14.8) 11.4 % (11.6-14.8) L Platelet Count 175 K/UL (150-450) 174 K/UL (150-450) Mean Platelet Volume 6.3 FL (6.5-10.1) L 6.5 FL (6.5-10.1) Neutrophils (%) (Auto) 79.7 % (45.0-75.0) H 65.7 % (45.0-75.0) Lymphocytes (%) (Auto) 11.8 % (20.0-45.0) L 22.3 % (20.0-45.0) Monocytes (%) (Auto) 7.4 % (1.0-10.0) 11.3 % (1.0-10.0) H Eosinophils (%) (Auto) 0.1 % (0.0-3.0) 0.3 % (0.0-3.0) Basophils (%) (Auto) 1.0 % (0.0-2.0) 0.5 % (0.0-2.0) Prothrombin Time 10.7 SEC (9.30-11.50) Prothromb Time International Ratio 1.0 (0.9-1.1) Activated Partial Thromboplast Time 20 SEC (23-33) L Sodium Level 145 MMOL/L (136-145) 141 MMOL/L (136-145) Potassium Level 3.7 MMOL/L (3.5-5.1) 3.6 MMOL/L (3.5-5.1) Chloride Level 98 MMOL/L (98-107) 103 MMOL/L (98-107) Carbon Dioxide Level 36 MMOL/L (21-32) H 34 MMOL/L (21-32) H Anion Gap 11 mmol/L (5-15) 4 mmol/L (5-15) L Blood Urea Nitrogen 32 mg/dL (7-18) H 43 mg/dL (7-18) H Creatinine 1.8 MG/DL (0.55-1.30) H 2.4 MG/DL (0.55-1.30) H Estimat Glomerular Filtration Rate mL/min (>60) mL/min (>60) Glucose Level 120 MG/DL (74-106) H 103 MG/DL (74-106) Calcium Level 10.3 MG/DL (8.5-10.1) H 8.1 MG/DL (8.5-10.1) #L Total Bilirubin 0.6 MG/DL (0.2-1.0) 0.5 MG/DL (0.2-1.0) Aspartate Amino Transf (AST/SGOT) 32 U/L (15-37) 21 U/L (15-37) Alanine Aminotransferase (ALT/SGPT) 13 U/L (12-78) 12 U/L (12-78) Alkaline Phosphatase 55 U/L (46-116) 35 U/L (46-116) L Troponin I 0.053 ng/mL (0.000-0.056) 0.097 ng/mL (0.000-0.056) 0.555 ng/mL (0.000-0.056) Pro-B-Type Natriuretic Peptide 8394 pg/mL (0-125) H Total Protein 10.0 G/DL (6.4-8.2) H 6.9 G/DL (6.4-8.2) # Albumin 4.3 G/DL (3.4-5.0) 3.0 G/DL (3.4-5.0) L Globulin 5.7 g/dL 3.9 g/dL Albumin/Globulin Ratio 0.8 (1.0-2.7) L 0.8 (1.0-2.7) L Lipase 237 U/L (73-393) Urine Color Yellow Urine Appearance Cloudy Urine pH 7 (4.5-8.0) Urine Specific [place] 1.010 (1.005-1.035) Urine Protein 3+ (NEGATIVE) H Urine Glucose (UA) Negative (NEGATIVE) Urine Ketones 1+ (NEGATIVE) H Urine Blood 2+ (NEGATIVE) H Urine Nitrite Negative (NEGATIVE) Urine Bilirubin Negative (NEGATIVE) Urine Urobilinogen 1 MG/DL (0.0-1.0) H Urine Leukocyte Esterase 2+ (NEGATIVE) H Urine RBC 2-4 /HPF (0 - 2) H Urine WBC 15-20 /HPF (0 - 2) H Urine Squamous Epithelial Cells Few /LPF (NONE/OCC) Urine Bacteria Many /HPF (NONE) H Urine Opiates Screen Negative (NEGATIVE) Urine Barbiturates Screen Negative (NEGATIVE) Phencyclidine (PCP) Screen Negative (NEGATIVE) Urine Amphetamines Screen Negative (NEGATIVE) Urine Benzodiazepines Screen Negative (NEGATIVE) Urine Cocaine Screen Negative (NEGATIVE) Urine Marijuana (THC) Screen Negative (NEGATIVE) Erythrocyte Sedimentation Rate 71 MM/HR (0-30) H Iron Level 101 ug/dL (50-175) Total Iron Binding Capacity 217 ug/dL (250-450) L Percent Iron Saturation 47 % (15-50) Unsaturated Iron Binding 116 ug/dL (112-346) C-Reactive Protein, Quantitative < 0.4 mg/dL (0.00-0.90) Amylase Level 164 U/L (25-115) H Test 05/13/19 12:00 Troponin I Pending Plan Problems: (1) Obstructed ventral hernia Assessment & Plan: This is a 83-year-old female with known history of large ventral hernia which comes in with abdominal discomfort cramping nausea and emesis. Patient's daughter at the bedside. And talking with them patient has had her ventral hernia for many years now and has not considered repair. Patient's daughter states that at some point it was larger but is she has been losing weight is become smaller. Cramping began yesterday morning followed by nausea and nonbloody emesis. Has not had emesis today. Came in for evaluation given the symptoms. CT scan demonstrated a large ventral hernia with bowel gastric and small bowel colonic contents as well. On bedside evaluation patient has a very large ventral hernia with noted bowel contents. Patient likely has significant loss of domain given her size compared and relative to the size of the hernia and contents of the abdominal wall hernia. Bowel sounds are audible and hernia contents are reducible though the entire contents of the hernia cannot be reduced into the abdomen given the loss of domain. Fortunately no significant strangulation tenderness or obstruction identified at this time. Potentially constipation. KUB noted exam improved labs stable start diet trial IV fluids Trend labs We will follow with recommendations I had a long discussion with the patient and her daughter at bedside. If strangulation or incarceration and unreducible requiring urgent surgery they are okay and amenable to it but no elective surgery or repair is wanted by the patient or family. Thank you for allowing me to participate in patient's care Tony Bee May 13, 2019 12:47
--- NOTE | 2019-05-13 13:15 | NUR ---
NURSE NOTES: Notified Dr. Mari and Dr. Harris regarding elevated Troponin level, which was 0.568. No new order yet. No chest pain or shortness of breath noted. The patient is stable without acute distress or shortness of breath. Will continue plan of care.
--- NOTE | 2019-05-13 13:28 | Cardiology Report ---
APPROVED REPORT EXAM: Two-dimensional and M-mode echocardiogram with Doppler and color Doppler. INDICATION ABDOMINAL PAIN M-Mode DIMENSIONS IVSd1.5 (0.7-1.1cm)Left Atrium (MM)2.9 (1.6-4.0cm) LVDd4.2 (3.5-5.6cm)Aortic Root2.0 (2.0-3.7cm) PWd0.8 (0.7-1.1cm)Aortic Cusp Exc.0.7 (1.5-2.0cm) IVSs1.3 cm LVDs2.9 (2.5-4.0cm) PWs0.8 cm Technically difficult study due to poor acoustical windows. Normal left ventricular chamber size, systolic function and wall motion to extent visualized. Left ventricular ejection fraction estimated to be 65-70%. Mild to moderate left ventricular hypertrophy. No pericardial effusion. Mild left atrial enlargement . Right cardiac chamber sizes are within normal limits. Aortic valve calcification with decreased cusp excursion c/w aortic stenosis,suggested as severe aortic stenosis . Thickened mitral valve leaflets with normal excursion. Mitral annulus and aortic root calcification. Pulmonic valve not well visualized. IVC at size 1.5 cm without physiologic collapse . A color flow and spectral Doppler study was performed and revealed: Mild aortic insufficiency . Peak aortic valve gradient of 45 mm Hg and a mean of 90 mmHg. Aortic valve area 0.6 cm2 calculated by continuity equation. Mitral diastolic velocities suggest reduced left ventricular relaxation c/w mild LV diastolic dysfunction (Grade I ). Mild to moderate mitral regurgitation. Mild tricuspid regurgitation. Tricuspid systolic velocities suggests peak right ventricular systolic pressure of 33mmHg.
[2019-05-13] MEDS: cefTRIAXone 1 GM in D5W 55 ML IVPB SCH (15:18)
--- NOTE | 2019-05-13 15:45 | History and Physical Report ---
DATE OF ADMISSION: 05/12/2019 CHIEF COMPLAINT: Abdominal pain, large ventral abdominal hernia. HISTORY OF PRESENT ILLNESS: The patient is an 83-year-old female. She is known to me from the office. She has a history of dementia, chronic kidney disease, hypertension, and prior stroke. She has had a chronic large ventral hernia. She has been relatively asymptomatic until recently when she began to develop worsening pain, weight loss. She has declined any surgical intervention or repair of the hernia. The patient presented to the ER because of continued worsening abdominal pain. On evaluation in the emergency room, vital signs were stable. The patient was afebrile. CT scan of the abdomen showed a large hiatal hernia containing most of the stomach, small bowel and proximal colon. The proximal stomach was not in the hernia, but did appear to be dilated and there is concern about a partial obstruction. The patient is now admitted for further evaluation and care. PAST MEDICAL HISTORY: As above. PAST SURGICAL HISTORY: None. CURRENT MEDICATIONS: Reconciled and reviewed. ALLERGIES: None. FAMILY HISTORY: None. SOCIAL HISTORY: There is no known history of tobacco, ethanol, or drugs. REVIEW OF SYSTEMS: GENERAL: No fever or chills. HEENT: No headaches or visual changes. CARDIOPULMONARY: No chest pain or shortness of breath. GASTROINTESTINAL: Positive abdominal pain. No nausea. No vomiting. Positive history of chronic hernia. GENITOURINARY: No urgency or frequency. MUSCULOSKELETAL: No joint pain or swelling. NEUROLOGIC: No evidence of seizures. Positive history of stroke. PHYSICAL EXAMINATION: VITAL SIGNS: Temperature 98 degrees, pulse 72, respirations 18, and blood pressure . GENERAL: The patient is well developed, in no apparent distress. HEART: Regular rate and rhythm. LUNGS: Clear. ABDOMEN: Soft. There is a large ventral hernia noted with normoactive bowel sounds. EXTREMITIES: No clubbing, cyanosis, or edema. LABORATORY DATA: White count 9, hemoglobin 13, hematocrit 41, and platelets 175,000. Sodium 141, potassium 3.6, chloride 103, bicarb 34, BUN 43, and creatinine 2.3. Troponin was 0.097. ASSESSMENT: This is a pleasant female with history of chronic ventral hernia admitted with complaints of worsening abdominal pain, suspect secondary to worsening of her hernia. She has history of hypertension, stroke, and diastolic congestive heart failure. PLAN: 1. Surgical followup. 2. We will trend troponin. 3. Check an echocardiogram. 4. Monitor serial abdominal exams and KUBs. 5. The patient and her family are agreeable to emergent surgery as indicated. Phil Harris M.D. DR: CARIE JOB#: [id number] CC:
[2019-05-13 16:00] VITALS: BP 141/63
--- NOTE | 2019-05-13 18:00 | NUR ---
NURSE NOTES: The patient is stable without acute distress or shortness of breath. The patient is tolerating well for full liquid diet. No new order for elevated Troponin yet. Will continue plan of care.
--- NOTE | 2019-05-13 19:00 | NUR ---
NURSE NOTES: Received patient from ARTHUR Hendrix, patient in stable condition, AOx3, denies pain at this time, left eye blindness, IV site on right forearm, g22, asymptomatic, patent, intact, bed low&locked, call light within reach, will continue to monitor and reassess.
--- NOTE | 2019-05-13 19:15 | NUR ---
HAND-OFF: Report given to ARTHUR Matos. The patient is resting on the bed without acute distress or shortness of breath. The patient's bed in the lowest position, call light in reach, and fall and aspiration precaution reinforced. IV site intact and patnet. Endorsed plan of care. Addendum: 05/13/19 at 1917 by Erasto Bennett RN *patent
[2019-05-13 20:00] VITALS: BP 153/73
[2019-05-14] VITALS: BP 157/75
[2019-05-14] MEDS: Metoprolol Tartrate 10 MG in D5W 55 ML IVPB SCH (00:32)
[2019-05-14 04:00] VITALS: BP 153/79
--- NOTE | 2019-05-14 04:30 | Progress Note ---
DATE: 05/13/2019 CARDIOLOGY PROGRESS NOTE SUBJECTIVE: The patient feels better. No nausea or vomiting. Tolerating liquid. Abdominal pain decreased. OBJECTIVE: VITAL SIGNS: Blood pressure 141/63, pulse 74, respiratory rate 18, and afebrile. LUNGS: Clear. CARDIAC: Regular. Normal S1 and S2 with a fourth heart sound. ABDOMEN: Soft. The hernia is noted and smaller than yesterday. EXTREMITIES: No edema. Baseline right hemiparesis. LABORATORY DATA: White count 6.8 and hemoglobin 9.9. Troponin 0.568. BUN 43, creatinine 2.4, and potassium 3.6. Albumin 3. IMPRESSION: 1. Abdominal pain with transient small bowel obstruction due to incarcerated hernia that has been reduced. 2. Acute myocardial ischemia and possible non-ST elevation myocardial infarction. 3. Malignant hypertension, improved. 4. Mild protein-calorie malnutrition. 5. Acute on chronic renal failure. PLAN: 1. Hydration. 2. Titrate antihypertensives. 3. Empiric antimicrobials. 4. Advanced diet. 5. Surgical followup. 6. Observe for recurring obstructive symptoms. 7. DVT prophylaxis. 8. Anti-platelet therapy. 9. Beta blockade. Raghu Mari M.D. DR: OLIVER JOB#: [id number] CC:
--- NOTE | 2019-05-14 07:35 | NUR ---
NURSE NOTES: Received report from Mariia/RN, Patient is awake, eating breakfast on bed. Able to make needs known. Denies pain at this time. IV site patent, no bleeding or infiltration noted. Encouraged to use call light when needed. Bed in lowest position and locked, Bed alarm engaged, Side-rails up x3. Call light within reach. Will continue plan of care.
[2019-05-14 07:40] LABS: BASOPHILS % (AUTO) 0.8 % (0.0-2.0); EOSINOPHILS % (AUTO) 0.7 % (0.0-3.0); HEMATOCRIT 30.7 % (37.0-47.0); HEMOGLOBIN 10.4 G/DL (12.0-16.0); LYMPHOCYTES % (AUTO) 32.1 % (20.0-45.0); MEAN CORPUSCULAR VOLUME 94 FL (80-99); MONOCYTES % (AUTO) 11.8 % (1.0-10.0); NEUTROPHILS % (AUTO) 54.6 % (45.0-75.0); PLATELET COUNT 175 K/UL (150-450); RED BLOOD COUNT 3.29 M/UL (4.20-5.40); RED CELL DISTRIBUTION WIDTH 11.3 % (11.6-14.8); WHITE BLOOD COUNT 6.8 K/UL (4.8-10.8)
[2019-05-14 07:46] LABS: ALANINE AMINOTRANSFERASE 12 U/L (12-78); ALBUMIN 2.9 G/DL (3.4-5.0); ALBUMIN/GLOBULIN RATIO 0.7 (1.0-2.7); ALKALINE PHOSPHATASE 36 U/L (46-116); ANION GAP 6 mmol/L (5-15); ASPARTATE AMINO TRANSFERASE 24 U/L (15-37); BILIRUBIN,TOTAL 0.4 MG/DL (0.2-1.0); BLOOD UREA NITROGEN 37 mg/dL (7-18); CALCIUM 8.4 MG/DL (8.5-10.1); CARBON DIOXIDE 32 MMOL/L (21-32); CHLORIDE 104 MMOL/L (98-107); CREATININE 1.6 MG/DL (0.55-1.30); POTASSIUM 3.3 MMOL/L (3.5-5.1); SODIUM 142 MMOL/L (136-145)
--- NOTE | 2019-05-14 07:46 | NUR ---
HAND-OFF: Report given to ARTHUR Padilla, patient in stable condition,plan of care endorsed .
--- NOTE | 2019-05-14 07:52 | NUR ---
HAND-OFF: Report given to ARTHUR Hinton, patient in stable condition,plan of care endorsed . Addendum: 05/14/19 at 0753 by ESDRAS CENTENO RN Disregard this note
--- NOTE | 2019-05-14 07:59 | General Progress Note ---
Assessment/Plan Problem List: (1) Acute renal failure (ARF) ICD Codes: N17.9 - Acute kidney failure, unspecified SNOMED: 31278159 (2) Obstructed ventral hernia ICD Codes: K43.6 - Other and unspecified ventral hernia with obstruction, without gangrene SNOMED: 371820432, 036958574 (3) Elevated brain natriuretic peptide (BNP) level ICD Codes: R79.89 - Other specified abnormal findings of blood chemistry SNOMED: 122544182, 592684318 (4) Gastrointestinal hemorrhage ICD Codes: K92.2 - Gastrointestinal hemorrhage, unspecified SNOMED: 73212353 (5) Non-ST elevated myocardial infarction ICD Codes: I21.4 - Non-ST elevation (NSTEMI) myocardial infarction SNOMED: 869552667 (6) hernia Status: stable, progressing Assessment/Plan: serial abd exams ivf monitor renal fxn/albs surgery follow up antiplt rx bp control Subjective ROS Limited/Unobtainable: No Constitutional: Reports: malaise, weakness HEENT: Reports: no symptoms Cardiovascular: Reports: no symptoms Respiratory: Reports: no symptoms Gastrointestinal/Abdominal: Reports: abdominal pain Genitourinary: Reports: no symptoms Neurologic/Psychiatric: Reports: no symptoms Endocrine: Reports: no symptoms Hematologic/Lymphatic: Reports: no symptoms Allergies: Coded Allergies: NO KNOWN ALLERGIES (Unverified Allergy, Unknown, 07/22/15) All Systems: reviewed and negative except above Subjective no complaints. tolerating po. decreased pain. no vomiting. Cr improving. Objective Last 24 Hour Vital Signs Date Time Temp Pulse Resp B/P (MAP) Pulse Ox O2 Delivery O2 Flow Rate FiO2 05/14/19 04:11 81 05/14/19 04:00 97.5 63 18 153/79 (103) 97 05/14/19 00:32 65 157/75 05/14/19 00:00 97.5 65 18 157/75 (102) 95 05/14/19 00:00 60 05/13/19 21:00 Room Air 05/13/19 20:00 67 05/13/19 20:00 96.9 70 18 153/73 (99) 95 05/13/19 17:14 69 144/73 05/13/19 16:00 69 05/13/19 16:00 98.2 74 18 141/63 (89) 97 05/13/19 12:06 68 141/68 05/13/19 12:00 64 05/13/19 12:00 98.1 68 18 141/68 (92) 98 05/13/19 09:00 Room Air 05/13/19 08:00 98.1 72 18 117/58 (77) 95 05/13/19 08:00 61 Intake and Output 05/13/19 05/14/19 18:59 06:59 Intake Total 300 ml Balance 300 ml Intake Oral 300 ml # Voids 1 3 Laboratory Tests 05/13/19 12:00: Troponin I 0.568H 05/14/19 05:42: White Blood Count [Pending], Red Blood Count [Pending], Hemoglobin [Pending], Hematocrit [Pending], Mean Corpuscular Volume [Pending], Mean Corpuscular Hemoglobin [Pending], Mean Corpuscular Hemoglobin Concent [Pending], Red Cell Distribution Width [Pending], Platelet Count [Pending], Mean Platelet Volume [ Pending], Neutrophils (%) (Auto) [Pending], Lymphocytes (%) (Auto) [Pending], Monocytes (%) (Auto) [Pending], Eosinophils (%) (Auto) [Pending], Basophils (%) (Auto) [Pending], Sodium Level 142, Potassium Level 3.3L, Chloride Level 104, Carbon Dioxide Level 32, Anion Gap 6, Blood Urea Nitrogen 37H, Creatinine 1.6H, Estimat Glomerular Filtration Rate , Glucose Level 88, Calcium Level 8.4L, Total Bilirubin 0.4, Aspartate Amino Transf (AST/SGOT) 24, Alanine Aminotransferase (ALT/SGPT) 12, Alkaline Phosphatase 36L, Total Protein 6.9, Albumin 2.9L, Globulin 4.0, Albumin/Globulin Ratio 0.7L Height (Feet): 4 Height (Inches): 11.00 Weight (Pounds): 137 General Appearance: WD/WN, alert Neck: supple Cardiovascular: normal rate, regular rhythm Respiratory/Chest: chest wall non-tender, lungs clear, normal breath sounds Abdomen: normal bowel sounds, non tender, soft, no organomegaly Edema: no edema noted Arm (L), no edema noted Arm (R), no edema noted Leg (L), no edema noted Leg (R), no edema noted Pedal (L), no edema noted Pedal (R), no edema noted Generalized Neurologic: hospitality ambassador II-XII grossly normal, alert, oriented x 3, responsive Phil Harris MD May 14, 2019 07:59
[2019-05-14 08:00] VITALS: BP 158/85
[2019-05-14] MEDS: Docusate 100mg cap ORAL SCH ×3 (09:50→17:20)
[2019-05-14] MEDS: Metoprolol Tartrate 50mg tab ORAL SCH ×2 (09:50→21:32)
[2019-05-14] MEDS: Aspirin EC 81mg tab ORAL SCH (09:50)
--- NOTE | 2019-05-14 10:05 | NUR ---
CASE MANAGEMENT:REVIEW 05/14/19 SI: ACUTE RENAL FAILURE. NSTEMI LARGE HERNIA ~ GETTING SMALLER 97.5 63 18 153/59 97% ON RA K-3.3 BUN+37 CR+1.6 IS: IV ROCEPHIN Q23 IVF@50/HR LOPRESSOR PO Q12 ASA PO QD NORVASC PO QD : TELEMETRY STATUS DCP: FROM HOME PLAN: NO SURGICAL INTERVENTION AT THIS TIME
[2019-05-14 12:00] VITALS: BP 115/61
--- NOTE | 2019-05-14 12:52 | CDS Physician Query ---
Clarification is required for compliance, coding accuracy, and to reflect severity of illness for this patient Dear Dr. Phil Harris M.D. Date: 05/14/2019 Collection Officer/CDS Name: Francisco Murguia he patient is an 83-year-old female. She is known to me from the office. She has a history of dementia, chronic kidney disease, hypertension, and prior stroke. She has had a chronic large ventral hernia. She has been relatively asymptomatic until recently when she began to develop worsening pain, weight loss. She has declined any surgical intervention or repair of the hernia. The patient presented to the ER because of continued worsening abdominal pain. On evaluation in the emergency room, vital signs were stable. The patient was afebrile. ECHO: EF: 65-70% Pro-BNP: 8394 "Diastolic CHF" documented in H&P Please Clarify: Acuity [] Acute [] Chronic [x] Acute on Chronic Type [] Systolic [x] Diastolic [] Systolic & Diastolic (Combined) [] Other: Present on Admission: [x] Yes [] No [] Clinically Undetermined Physician signature Date Please also document in your Progress Notes and/or Discharge Summary and indicate if the condition was present on admission. MTDD
--- NOTE | 2019-05-14 14:05 | NUR ---
PT EVALUATION NOTE Patient seen for initial evaluation, see complete evaluation for details. Patient presents with generalized weakness and impaired balance which affects patient's ability to perform mobility tasks safely. Patient requires min/mod assist for bed mobility and for transfers with FWW. Patient unsteady in standing, able to take several small sideways steps towards the HOB with min assist. Patient unable to ambulate due to weakness and instability in standing. Patient will benefit from skilled inpatient PT intervention to address strength, balance and safety for improved level of functional mobility. Recommend discharge to ARU/SNF for further rehab once medically cleared by MD to return to prior level of function. Patient appears to have necessary DME at home. Addendum: 05/14/19 at 1439 by REYNOLD MILLS PT Amended: Links added.
[2019-05-14 16:00] VITALS: BP 164/73
[2019-05-14] MEDS: cefTRIAXone 1 GM in D5W 55 ML IVPB SCH (16:31)
--- NOTE | 2019-05-14 16:54 | Surgery Progress Note ---
Surgery Progress Note Subjective Additional Comments No acute events. States she is feeling very well. No nausea vomiting fever chills. Tolerating diet. Passing flatus. Abdominal exam benign. Labs noted. Objective Last 24 Hour Vital Signs Date Time Temp Pulse Resp B/P (MAP) Pulse Ox O2 Delivery O2 Flow Rate FiO2 05/14/19 12:00 97.7 60 18 115/61 (79) 97 05/14/19 12:00 59 05/14/19 09:50 60 158/85 05/14/19 09:50 60 158/85 05/14/19 09:00 Room Air 05/14/19 08:00 97.6 60 20 158/85 (109) 98 05/14/19 08:00 72 05/14/19 04:11 81 05/14/19 04:00 97.5 63 18 153/79 (103) 97 05/14/19 00:32 65 157/75 05/14/19 00:00 97.5 65 18 157/75 (102) 95 05/14/19 00:00 60 05/13/19 21:00 Room Air 05/13/19 20:00 67 05/13/19 20:00 96.9 70 18 153/73 (99) 95 05/13/19 17:14 69 144/73 I&O Intake and Output 05/13/19 05/14/19 19:00 07:00 Intake Total 300 ml Balance 300 ml Intake Oral 300 ml # Voids 1 3 Cardiovascular: RSR Respiratory: clear Abdomen: soft, non-tender, present bowel sounds, other Extremities: no edema, no tenderness, no cyanosis Laboratory Tests Test 05/14/19 05:42 White Blood Count 6.8 K/UL (4.8-10.8) Red Blood Count 3.29 M/UL (4.20-5.40) L Hemoglobin 10.4 G/DL (12.0-16.0) L Hematocrit 30.7 % (37.0-47.0) L Mean Corpuscular Volume 94 FL (80-99) Mean Corpuscular Hemoglobin 31.5 PG (27.0-31.0) H Mean Corpuscular Hemoglobin Concent 33.7 G/DL (32.0-36.0) Red Cell Distribution Width 11.3 % (11.6-14.8) L Platelet Count 175 K/UL (150-450) Mean Platelet Volume 6.0 FL (6.5-10.1) L Neutrophils (%) (Auto) 54.6 % (45.0-75.0) Lymphocytes (%) (Auto) 32.1 % (20.0-45.0) Monocytes (%) (Auto) 11.8 % (1.0-10.0) H Eosinophils (%) (Auto) 0.7 % (0.0-3.0) Basophils (%) (Auto) 0.8 % (0.0-2.0) Sodium Level 142 MMOL/L (136-145) Potassium Level 3.3 MMOL/L (3.5-5.1) L Chloride Level 104 MMOL/L (98-107) Carbon Dioxide Level 32 MMOL/L (21-32) Anion Gap 6 mmol/L (5-15) Blood Urea Nitrogen 37 mg/dL (7-18) H Creatinine 1.6 MG/DL (0.55-1.30) H Estimat Glomerular Filtration Rate mL/min (>60) Glucose Level 88 MG/DL (74-106) Calcium Level 8.4 MG/DL (8.5-10.1) L Total Bilirubin 0.4 MG/DL (0.2-1.0) Aspartate Amino Transf (AST/SGOT) 24 U/L (15-37) Alanine Aminotransferase (ALT/SGPT) 12 U/L (12-78) Alkaline Phosphatase 36 U/L (46-116) L Total Protein 6.9 G/DL (6.4-8.2) Albumin 2.9 G/DL (3.4-5.0) L Globulin 4.0 g/dL Albumin/Globulin Ratio 0.7 (1.0-2.7) L Plan Problems: (1) Obstructed ventral hernia Assessment & Plan: This is a 83-year-old female with known history of large ventral hernia which comes in with abdominal discomfort cramping nausea and emesis. Patient's daughter at the bedside. And talking with them patient has had her ventral hernia for many years now and has not considered repair. Patient's daughter states that at some point it was larger but is she has been losing weight is become smaller. Cramping began yesterday morning followed by nausea and nonbloody emesis. Has not had emesis today. Came in for evaluation given the symptoms. CT scan demonstrated a large ventral hernia with bowel gastric and small bowel colonic contents as well. On bedside evaluation patient has a very large ventral hernia with noted bowel contents. Patient likely has significant loss of domain given her size compared and relative to the size of the hernia and contents of the abdominal wall hernia. Bowel sounds are audible and hernia contents are reducible though the entire contents of the hernia cannot be reduced into the abdomen given the loss of domain. Fortunately no significant strangulation tenderness or obstruction identified at this time. Potentially constipation. KUB noted exam improved labs stable Diet as tolerated Bowel regimen IV fluids Trend labs We will follow with recommendations I had a long discussion with the patient and her daughter at bedside. If strangulation or incarceration and unreducible requiring urgent surgery they are okay and amenable to it but no elective surgery or repair is wanted by the patient or family. Thank you for allowing me to participate in patient's care Tony Bee May 14, 2019 16:54
[2019-05-14] MEDS ORDERED: Milk of Magnesia 30ml Ud ORAL SCH (17:00)
--- NOTE | 2019-05-14 19:23 | NUR ---
HAND-OFF: Report given to Mariia/RN, patient is awake, watching TV, In stable condition. Endorsed plan of care.
--- NOTE | 2019-05-14 19:54 | NUR ---
NURSE NOTES: Received patient from ARTHUR Padilla, patient in stable condition, AOx3, denies pain at this time, left eye blindness, IV site on left forearm, g20, asymptomatic, patent, intact, bed low&locked, call light within reach, will continue to monitor and reassess.
[2019-05-14 20:00] VITALS: BP_SYST 160; BP_SYST 165; BP_DIAS 72
[2019-05-15] VITALS (7 sets, daily range): BP systolic 131–206; BP diastolic 63–98
--- NOTE | 2019-05-15 03:00 | Progress Note ---
DATE: 05/14/2019 CARDIOLOGY PROGRESS NOTE SUBJECTIVE: The patient feels better. No nausea or vomiting. Diet has been advanced. She is passing gas. She has no abdominal pain. Blood pressure remains borderline elevated, however, she is at baseline. OBJECTIVE: VITAL SIGNS: Blood pressure 158/85, pulse 60, respirations 20, and afebrile. Monitored rhythm, sinus with arrhythmia. HEENT: Conjunctivae pink. Oropharynx clear. NECK: Supple. Jugular venous pressure normal. LUNGS: Clear. CARDIAC: Regular rhythm and rate. Normal S1, S2 with a fourth heart sound. ABDOMEN: Soft, nontender. EXTREMITIES: Right hemiparesis. No edema. LABORATORY DATA: White count 6.8, hemoglobin 10.4. Potassium 3.3, BUN 37, creatinine 1.6. Albumin 2.9. Troponin 0.568 yesterday. IMPRESSION: 1. Abdominal hernia with transient incarceration and bowel obstruction, now recovered. 2. Acute renal failure, resolving. 3. Hypokalemia. 4. Acute myocardial ischemia. 5. Malignant range hypertension/hypertensive urgency, resolved. 6. Hypertensive heart disease. 7. Moderate protein calorie malnutrition. 8. CVA with right-sided weakness. PLAN: 1. Replace potassium. 2. Recheck electrolytes including magnesium. 3. Adjust IV fluids. 4. Increase oral intake. 5. Mobilization efforts. 6. Titrate antihypertensives. 7. Rehabilitation at retirement facility prior to return home. 8. Bowel regimen in place. 9. Continue anti-platelet therapy. Raghu Mari M.D. DR: CHRISTY JOB#: [id number] CC:
[2019-05-15] MEDS: D5 1/2NS w/KCl 20mEq 1,000 ML IV SCH ×2 (04:59→20:43)
--- NOTE | 2019-05-15 07:01 | NUR ---
HAND-OFF: Report given to ValerieRN, patient stable, plan of care endorsed.
--- NOTE | 2019-05-15 07:10 | NUR ---
NURSE NOTES: Received report from Mariia/RN, Patient is awake, Lying semi-kim's, resting comfortably. Able to make needs known. Denies pain at this time. IV site patent, no bleeding or infiltration noted. Encouraged to use call light when needed. Bed in lowest position and locked, Bed alarm engaged, Side-rails up x3. Call light within reach. Will continue plan of care.
--- NOTE | 2019-05-15 07:18 | General Progress Note ---
Assessment/Plan Problem List: (1) Acute renal failure (ARF) ICD Codes: N17.9 - Acute kidney failure, unspecified SNOMED: 95293730 (2) Obstructed ventral hernia ICD Codes: K43.6 - Other and unspecified ventral hernia with obstruction, without gangrene SNOMED: 590766455, 026556541 (3) Elevated brain natriuretic peptide (BNP) level ICD Codes: R79.89 - Other specified abnormal findings of blood chemistry SNOMED: 836197083, 831010405 (4) Gastrointestinal hemorrhage ICD Codes: K92.2 - Gastrointestinal hemorrhage, unspecified SNOMED: 14444981 (5) Non-ST elevated myocardial infarction ICD Codes: I21.4 - Non-ST elevation (NSTEMI) myocardial infarction SNOMED: 503512645 (6) hernia Status: stable, progressing Assessment/Plan: antiplt rx b-blockade pain rx as needed follow up labs pt/ot dc planning ? Subjective ROS Limited/Unobtainable: No Constitutional: Reports: weakness HEENT: Reports: no symptoms Cardiovascular: Reports: no symptoms Respiratory: Reports: no symptoms Gastrointestinal/Abdominal: Reports: no symptoms Genitourinary: Reports: no symptoms Neurologic/Psychiatric: Reports: no symptoms Endocrine: Reports: no symptoms Hematologic/Lymphatic: Reports: no symptoms Allergies: Coded Allergies: NO KNOWN ALLERGIES (Unverified Allergy, Unknown, 07/22/15) All Systems: reviewed and negative except above Subjective no new complaints. tolerating po. no vomiting or abd pain. surgery and cards noted. am labs pending. Objective Last 24 Hour Vital Signs Date Time Temp Pulse Resp B/P (MAP) Pulse Ox O2 Delivery O2 Flow Rate FiO2 05/15/19 04:00 55 05/15/19 04:00 97.0 56 18 139/69 (92) 98 05/15/19 00:00 97.9 56 18 135/64 (87) 98 05/15/19 00:00 57 05/14/19 21:32 68 165/72 05/14/19 21:31 165/72 05/14/19 21:00 Room Air 05/14/19 20:11 68 05/14/19 20:00 99.1 72 16 165/72 (103) 98 05/14/19 16:00 69 05/14/19 16:00 98.6 62 20 164/73 (103) 98 05/14/19 12:00 97.7 60 18 115/61 (79) 97 05/14/19 12:00 59 05/14/19 09:50 60 158/85 05/14/19 09:50 60 158/85 05/14/19 09:00 Room Air 05/14/19 08:00 97.6 60 20 158/85 (109) 98 05/14/19 08:00 72 Intake and Output 05/14/19 05/15/19 18:59 06:59 Intake Total 360 ml Output Total 500 ml Balance -140 ml Intake Oral 360 ml Output Urine Total 500 ml # Voids 3 Laboratory Tests 05/15/19 05:40: White Blood Count [Pending], Red Blood Count [Pending], Hemoglobin [Pending], Hematocrit [Pending], Mean Corpuscular Volume [Pending], Mean Corpuscular Hemoglobin [Pending], Mean Corpuscular Hemoglobin Concent [Pending], Red Cell Distribution Width [Pending], Platelet Count [Pending], Mean Platelet Volume [ Pending], Neutrophils (%) (Auto) [Pending], Lymphocytes (%) (Auto) [Pending], Monocytes (%) (Auto) [Pending], Eosinophils (%) (Auto) [Pending], Basophils (%) (Auto) [Pending], Sodium Level [Pending], Potassium Level [Pending], Chloride Level [Pending], Carbon Dioxide Level [Pending], Blood Urea Nitrogen [Pending], Creatinine [Pending], Estimat Glomerular Filtration Rate [Pending], Glucose Level [Pending], Uric Acid [Pending], Calcium Level [Pending], Magnesium Level [ Pending], Total Bilirubin [Pending], Aspartate Amino Transf (AST/SGOT) [Pending] , Alanine Aminotransferase (ALT/SGPT) [Pending], Alkaline Phosphatase [Pending] , Pro-B-Type Natriuretic Peptide [Pending], Total Protein [Pending], Albumin [ Pending], Globulin [Pending] Height (Feet): 4 Height (Inches): 11.00 Weight (Pounds): 137 Objective General Appearance: WD/WN, alert Neck: supple Cardiovascular: normal rate, regular rhythm Respiratory/Chest: chest wall non-tender, lungs clear, normal breath sounds Abdomen: normal bowel sounds, non tender, soft, no organomegaly Edema: no edema noted Arm (L), no edema noted Arm (R), no edema noted Leg (L), no edema noted Leg (R), no edema noted Pedal (L), no edema noted Pedal (R), no edema noted Generalized Neurologic: meter setter II-XII grossly normal, alert, oriented x 3, responsive UPhil schwab MD May 15, 2019 07:18
[2019-05-15 07:25] LABS: BASOPHILS % (AUTO) 0.7 % (0.0-2.0); HEMATOCRIT 28.9 % (37.0-47.0); HEMOGLOBIN 9.6 G/DL (12.0-16.0); LYMPHOCYTES % (AUTO) 36.5 % (20.0-45.0); MEAN CORPUSCULAR VOLUME 94 FL (80-99); MONOCYTES % (AUTO) 11.4 % (1.0-10.0); NEUTROPHILS % (AUTO) 50.4 % (45.0-75.0); PLATELET COUNT 164 K/UL (150-450); RED BLOOD COUNT 3.08 M/UL (4.20-5.40); RED CELL DISTRIBUTION WIDTH 11.3 % (11.6-14.8); WHITE BLOOD COUNT 5.2 K/UL (4.8-10.8)
[2019-05-15 07:37] LABS: ALANINE AMINOTRANSFERASE 10 U/L (12-78); ALBUMIN 2.7 G/DL (3.4-5.0); ALBUMIN/GLOBULIN RATIO 0.7 (1.0-2.7); ALKALINE PHOSPHATASE 35 U/L (46-116); ANION GAP 5 mmol/L (5-15); ASPARTATE AMINO TRANSFERASE 21 U/L (15-37); BILIRUBIN,TOTAL 0.3 MG/DL (0.2-1.0); BLOOD UREA NITROGEN 23 mg/dL (7-18); CALCIUM 8.4 MG/DL (8.5-10.1); CARBON DIOXIDE 30 MMOL/L (21-32); CHLORIDE 106 MMOL/L (98-107); CREATININE 1.2 MG/DL (0.55-1.30); POTASSIUM 4.3 MMOL/L (3.5-5.1); SODIUM 141 MMOL/L (136-145)
[2019-05-15] MEDS: Docusate 100mg cap ORAL SCH ×4 (09:03→18:00)
[2019-05-15] MEDS: Metoprolol Tartrate 50mg tab ORAL SCH ×2 (09:04→20:41)
[2019-05-15] MEDS: Aspirin EC 81mg tab ORAL SCH (09:04)
--- NOTE | 2019-05-15 09:43 | NUR ---
DISCHARGE PLANNING PER CONVERSATION WITH DR BOLES, YESTERDAY, PATIENT HAS BEEN REFERRED TO [facility] T: [phone] AWAIT ACCEPTANCE AND DISCHARGE ORDER
--- NOTE | 2019-05-15 10:40 | NUR ---
DISCHARGE PLANNING PATIENT WAS REFERRED TO [facility] T: [phone] RECEIVED MESSAGE FROM [facility] STATING PATIENT HAS BEEN ACCEPTED TO BOTH [facility] (ROOM [facility]B) AND [facility] (ROOM 8B) AWAIT DISCHARGE ORDER
[2019-05-15] MEDS ORDERED: MOM30 ML ORAL (14:21)
[2019-05-15] MEDS ORDERED: METOPROLOL TART50 MG ORAL (14:21)
[2019-05-15] MEDS ORDERED: ASPIRIN EC81 MG ORAL (14:21)
[2019-05-15] MEDS ORDERED: CLONIDINE0.1 MG ORAL (14:21)
[2019-05-15] MEDS ORDERED: NORVASC2.5 MG ORAL (14:21)
[2019-05-15] MEDS ORDERED: COLACE100 MG ORAL (14:21)
--- NOTE | 2019-05-15 14:34 | NUR ---
DISCHARGE PLANNED DISCHARGE ORDER NOTED PATIENT IS DISCHARGING TO [facility] ROOM [facility]B SKILLED T: [phone] FOR NURSE TO NURSE REPORT [facility] HAS BEEN ARRANGED FOR 1730 [employer] SUPERVISOR CALLED AND SPOKE WITH DAUGHTER, CURTIS. SHE IS IN AGREEMENT WITH DISCHARGE PLAN
--- NOTE | 2019-05-15 15:50 | NUR ---
HAND-OFF: Report given to Cristin/RN, Endorsed plan of care.
--- NOTE | 2019-05-15 15:53 | Surgery Progress Note ---
Surgery Progress Note Subjective Symptoms: improved, tolerating diet, voiding well, passing flatus Objective Last 24 Hour Vital Signs Date Time Temp Pulse Resp B/P (MAP) Pulse Ox O2 Delivery O2 Flow Rate FiO2 05/15/19 12:00 52 05/15/19 12:00 98.2 77 18 131/72 (91) 98 05/15/19 09:04 64 153/63 05/15/19 09:04 64 153/63 05/15/19 09:00 Room Air 05/15/19 08:00 97.0 64 20 153/63 (93) 98 05/15/19 08:00 56 05/15/19 04:00 55 05/15/19 04:00 97.0 56 18 139/69 (92) 98 05/15/19 00:00 97.9 56 18 135/64 (87) 98 05/15/19 00:00 57 05/14/19 21:32 68 165/72 05/14/19 21:31 165/72 05/14/19 21:00 Room Air 05/14/19 20:11 68 05/14/19 20:00 99.1 72 16 165/72 (103) 98 05/14/19 16:00 69 05/14/19 16:00 98.6 62 20 164/73 (103) 98 I&O Intake and Output 05/14/19 05/15/19 19:00 07:00 Intake Total 360 ml Output Total 500 ml Balance -140 ml Intake Oral 360 ml Output Urine Total 500 ml # Voids 3 Cardiovascular: RSR Respiratory: clear Abdomen: soft, non-tender, present bowel sounds, other Extremities: no tenderness, no cyanosis Laboratory Tests Test 05/15/19 05:40 White Blood Count 5.2 K/UL (4.8-10.8) Red Blood Count 3.08 M/UL (4.20-5.40) L Hemoglobin 9.6 G/DL (12.0-16.0) L Hematocrit 28.9 % (37.0-47.0) L Mean Corpuscular Volume 94 FL (80-99) Mean Corpuscular Hemoglobin 31.2 PG (27.0-31.0) H Mean Corpuscular Hemoglobin Concent 33.3 G/DL (32.0-36.0) Red Cell Distribution Width 11.3 % (11.6-14.8) L Platelet Count 164 K/UL (150-450) Mean Platelet Volume 6.6 FL (6.5-10.1) Neutrophils (%) (Auto) 50.4 % (45.0-75.0) Lymphocytes (%) (Auto) 36.5 % (20.0-45.0) Monocytes (%) (Auto) 11.4 % (1.0-10.0) H Eosinophils (%) (Auto) 1.0 % (0.0-3.0) Basophils (%) (Auto) 0.7 % (0.0-2.0) Sodium Level 141 MMOL/L (136-145) Potassium Level 4.3 MMOL/L (3.5-5.1) Chloride Level 106 MMOL/L (98-107) Carbon Dioxide Level 30 MMOL/L (21-32) Anion Gap 5 mmol/L (5-15) Blood Urea Nitrogen 23 mg/dL (7-18) H Creatinine 1.2 MG/DL (0.55-1.30) Estimat Glomerular Filtration Rate mL/min (>60) Glucose Level 84 MG/DL (74-106) Uric Acid 4.6 MG/DL (2.6-7.2) Calcium Level 8.4 MG/DL (8.5-10.1) L Magnesium Level 2.1 MG/DL (1.8-2.4) Total Bilirubin 0.3 MG/DL (0.2-1.0) Aspartate Amino Transf (AST/SGOT) 21 U/L (15-37) Alanine Aminotransferase (ALT/SGPT) 10 U/L (12-78) L Alkaline Phosphatase 35 U/L (46-116) L Pro-B-Type Natriuretic Peptide 4417 pg/mL (0-125) H Total Protein 6.6 G/DL (6.4-8.2) Albumin 2.7 G/DL (3.4-5.0) L Globulin 3.9 g/dL Albumin/Globulin Ratio 0.7 (1.0-2.7) L Plan Problems: (1) Obstructed ventral hernia Assessment & Plan: This is a 83-year-old female with known history of large ventral hernia which comes in with abdominal discomfort cramping nausea and emesis. Patient's daughter at the bedside. And talking with them patient has had her ventral hernia for many years now and has not considered repair. Patient's daughter states that at some point it was larger but is she has been losing weight is become smaller. Cramping began yesterday morning followed by nausea and nonbloody emesis. Has not had emesis today. Came in for evaluation given the symptoms. CT scan demonstrated a large ventral hernia with bowel gastric and small bowel colonic contents as well. On bedside evaluation patient has a very large ventral hernia with noted bowel contents. Patient likely has significant loss of domain given her size compared and relative to the size of the hernia and contents of the abdominal wall hernia. Bowel sounds are audible and hernia contents are reducible though the entire contents of the hernia cannot be reduced into the abdomen given the loss of domain. Fortunately no significant strangulation tenderness or obstruction identified at this time. Potentially constipation. KUB noted exam improved labs stable Diet as tolerated Bowel regimen IV fluids Trend labs We will follow with recommendations I had a long discussion with the patient and her daughter at bedside. If strangulation or incarceration and unreducible requiring urgent surgery they are okay and amenable to it but no elective surgery or repair is wanted by the patient or family. Thank you for allowing me to participate in patient's care Tony Bee May 15, 2019 15:53
--- NOTE | 2019-05-15 16:00 | NUR ---
NURSE NOTES: Discharge initiated. Call placed to tre Santiago. Report given to Mary. awaiting supervisor opening and picking at [phone]
--- NOTE | 2019-05-15 16:00 | NUR ---
NURSE NOTES: Received patient from Thelma Padilla. patient is AAOx3. no complain of pain or distress at this time. patient for pending discharge to [facility]. pick up attendant at 1730. will follow
[2019-05-15] MEDS: cefTRIAXone 1 GM in D5W 55 ML IVPB SCH (16:20)
--- NOTE | 2019-05-15 18:15 | NUR ---
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 per agent they will arrive between [phone]. will follow.
--- NOTE | 2019-05-15 19:50 | NUR ---
NURSE NOTES: Received patient from Cristin GIBSON. Patient in bed, on room air, no s/s of respiratory distress. Bed in low position, locked, bed alarm on, call light within reach.
--- NOTE | 2019-05-15 19:51 | NUR ---
HAND-OFF: Report given to Thelma Alvarado. Patient stable at time of handoff. still awaiting for transport to pick up attendant patient.
--- NOTE | 2019-05-15 21:15 | NUR ---
NURSE NOTES: [facility] arrived to pickup patient. BP 206/98. Hydralazine 10mg ivp given.
--- NOTE | 2019-05-15 21:36 | NUR ---
NURSE NOTES: BP decreased to 143/67, HR 71. Patient still awake and alert. On room air, no signs of respiratory distress. IV removed, applied pressure and gauze. Armband off, sequencing machine operator off, belongings list signed. Patient transported off unit.
--- NOTE | 2019-05-16 00:45 | Progress Note ---
DATE: 05/15/2019 CARDIOLOGY PROGRESS NOTE SUBJECTIVE: Abdominal pain has resolved. The patient is tolerating diet without nausea or vomiting. Blood pressure parameters are at baseline. There are rare episodes of blood pressure spike. Monitored rhythm sinus and sinus bradycardia. REVIEW OF SYSTEMS: The patient historically does not tolerate tight blood pressure parameters due to dizziness and orthostasis. OBJECTIVE: VITAL SIGNS: Blood pressure 139/69, pulse 56, and respirations 18. LUNGS: Clear. CARDIAC: Regular. Normal S1 and S2 with a fourth heart sound. There is a 2/6 systolic ejection murmur at the base. ABDOMEN: Soft and nontender. Hernia site is reduced. EXTREMITIES: No edema. LABORATORY DATA: White count 5.2, hemoglobin 9.6. BUN 23, creatinine 1.2, magnesium 2.1, potassium 4.3. Pro-natriuretic peptide 4400. IMPRESSION: 1. Ventral hernia, status post partial incarceration and associated small-bowel obstruction, now resolved. 2. Acute renal failure, recovered with hydration. 3. Hypertensive urgency, resolved. Labile blood pressure persists and is chronic. 4. Acute myocardial ischemia, recovered. 5. Moderate protein-calorie malnutrition, on re-supplement. 6. Acute on chronic diastolic congestive heart failure, clinically compensated. 7. Anemia of chronic disease and chronic kidney disease. 8. Degenerative aortic valve disease with stenosis, compensated. PLAN: 1. Current medication regimen will be continued. 2. Blood pressure spikes will be managed with p.r.n. therapy. 3. Maintaining adequate hydration and monitoring of cardiorenal function will continue as an outpatient. 4. The patient will go to a care home facility for short-term rehabilitation. Raghu Mari M.D. DR: CHRISTY JOB#: [id number] CC:
--- NOTE | 2019-05-16 08:11 | Discharge Summary ---
Discharge Summary Discharge Summary _ DATE OF ADMISSION: 05/12/2019 DATE OF DISCHARGE: 05/15/2019 DISCHARGED BY: Dr. Harris REASON FOR ADMISSION: 83 years old female with past medical history of hypertension, CVA, left eye blindness, hypertension, hypercholesterolemia dementia, chronic large ventral hernia, presented to emergency department due to worsening abdominal pain. Patient apparently had a chronic large ventral hernia. Patient had been relatively asymptomatic until recently when she began to develop weight loss and abdominal pain. Upon evaluation in emergency room vital signs revealed severe HTN 215/100. Patient was afebrile. CT scan of the abdomen and pelvis showed large hiatal hernia , containing most of the stomach, small bowel and proximal colon. Proximal stomach was not in the hernia , but it appeared to be dilated and there was a concern about a partial obstruction. Chest x-ray demonstrated no acute cardiopulmonary pathology. EKG revealed sinus rhythm , no acute ischemic changes. Pro BNP 8394. Troponin 0.047 Laboratory work-up revealed no leukocytosis, stable hemoglobin and hematocrit. BUN 32, creatinine 1.8. Glucose 120. Calcium 10.3. Urinalysis revealed evidence of probable UTI. Patient subsequently was admitted to telemetry floor for further management. CONSULTANTS: rough rounder machine Dr. Mari surgery [facility] COURSE: Patient admitted to telemetry floor. Patient was kept n.p.o. Patient was started on empiric antibiotic for UTI. Surgery consult was requested. Pain management was addressed as needed. Symptomatic care provided. Surgeon closely followed and discussed with patient and her daughter findings on imaging. recommended. Patient and her daughter decided to agree to procedure, if strangulation or incarceration and unreducible hernia will require urgent surgery. However they opted against elective surgery or repair. Patient was followed up with serial exams. Abdominal x-ray , done on the next day , revealed no acute abnormality. Focally protuberant lower abdomen/upper pelvic wall to be physiological. but the possibility of broad-based ventral hernia should be considered. Abdominal exam was improving. Patient was started on trial of diet. Cafe Lead closely followed. Second troponin was elevated 0.097, and the next 0.555. Patient started on antiplatelet therapy and beta blockage. Echocardiogram revealed preserved ejection fraction 65 to 70% with mild to moderate left ventricular hypertrophy. No evidence of wall motion abnormality. No evidence of pericardial effusion. Severe aortic stenosis noted. Mild to moderate mitral regurgitation. Right ventricular systolic pressure of 33. Patient was on telemetry floor. Blood pressure was managed initially with initially with intravenous antihypertensives initially. Blood pressure was closely monitored, and antihypertensive medication further titrated to bring blood pressure udner control. Hypertensive urgency resolved, however blood pressure remained labile. Antihypertensive added on as needed basis to managed blood rpessure spikes. Patient will need close monitoring as outpatient. DVT prophylaxis provided. Volumes and cardiorenal paramerts were closely monitored. Pro BNP from 8394 down to 4417. Patient started on diet as per surgeon. Patient was closely observed for recurrent obstructive symptoms. Follow-up abdominal exams remained benign. Patient was able to tolerate diet. Bowel regimen instituted. Surgeon ultimately cleared for discharge Renal parameters and electrolytes were closely monitored, electrolytes further corrected as needed. Nephrotoxic's were avoided. Acute renal failure resolved with IV hydration. Prior to discharge BUN from 32 down to 23 and creatinine from 1.8 down to 1.2. Potassium was replaced. Urine culture revealed E. coli. Patient competed treatment for UTI. Hemoglobin and hematocrit were closely monitored with goal to keep hemoglobin above 7. Prior to discharge hemoglobin 9.6, hematocrit 28.9. Patient started to work with physical therapist. Bowel regimen instituted. Protein supplements implemented in plan of care as per registered client associate recommendation. Patient clinically stabilized and was transferred to residential facility for short-term rehabilitation. FINAL DIAGNOSES: Large ventral hernia, status post partial incarceration and associated small- bowel obstruction, resolved. Obstructed ventral hernia -resolved Acute on chronic diastolic congestive heart failure, clinically compensated Acute myocardial ischemia , possible NSTEMI Hypertensive urgency -resolved Acute renal failure- resolved Degenerative aortic valve disease with aortic stenosis, compensated Hypertensive heart disease CVA with right-sided weakness Moderate protein calorie malnutrition Anemia of chronic disease Hypokalemia E coli UTI DISCHARGE MEDICATIONS: See Medication Reconciliation list. DISCHARGE INSTRUCTIONS: Patient was discharged to the residential facility. Follow up with medical doctor at the facility. I have been assigned to dictate discharge summary for this account. I was not involved in the patient's management. Yohana Yousif NP May 16, 2019 08:11
--- NOTE | 2019-05-16 11:38 | Cardiology Report ---
APPROVED REPORT EKG Measurement Heart [id number] Sinus rhythm with premature supraventricular complexes Left ventricular hypertrophy with repolarization abnormality Abnormal ECG
--- NOTE | 2019-05-22 13:48 | Coder Physician Query ---
Clarification is required for compliance, coding accuracy, and to reflect severity of illness for this patient. Dear Dr. GRADY Date: 05/21/19 Entry Driver Operator/CDS Name:DavidPATRICK ASSESSMENT: This is a pleasant female with history of chronic ventral hernia admitted with complaints of worsening abdominal pain On admit: troponin 05/12 13:17 0.053, one hour later Troponin was 0.097., next day 05/13 0.555 Film Mounter closely followed. Patient started on antiplatelet therapy and beta blockage. Echocardiogram revealed preserved ejection fraction 65 to 70% with mild to moderate left ventricular hypertrophy. No evidence of wall motion abnormality. No evidence of pericardial effusion. FINAL DIAGNOSES: Large ventral hernia, status post partial incarceration and associated small- bowel obstruction, resolved. Obstructed ventral hernia -resolved Acute on chronic diastolic congestive heart failure, clinically compensated Acute myocardial ischemia , possible NSTEMI A posssible diagnois of__NSTEMI was made in the medical record on DISCHARGE SUMMARY. Upon review, it is difficult to determine whether this diagnosis has been ruled in, ruled out,or is still being worked up. Please indicate below the status of the aforementioned diagnosis. [x] Treated and resolve [] Presumed and treated [] Currently under treatment [] Still being worked-up [] Ruled out Present on Admission: [] Yes [] No [] Clinically Undetermined TAL GRADY M.D. Date MTDD
== END 2019-05-15 21:35 | DRG 280 ==
LOC: EDBD 12:59 → EMR 13:05 → 2E 15:55 → EDBEDREQ 16:39
DX: I21.4 Non-ST elevation (NSTEMI) myocardial infarction (principal); I50.33 Acute on chronic diastolic (congestive) heart failure; K43.6 Other and unspecified ventral hernia with obstruction, without gangrene; N17.9 Acute kidney failure, unspecified; E44.0 Moderate protein-calorie malnutrition; I69.351 Hemiplegia and hemiparesis following cerebral infarction affecting right dominant side; N18.9 Chronic kidney disease, unspecified; E86.0 Dehydration; H54.62 Unqualified visual loss, left eye, normal vision right eye; H91.92 Unspecified hearing loss, left ear; I11.0 Hypertensive heart disease with heart failure; D63.8 Anemia in other chronic diseases classified elsewhere; D63.1 Anemia in chronic kidney disease; I35.0 Nonrheumatic aortic (valve) stenosis; I34.0 Nonrheumatic mitral (valve) insufficiency
CPT/HCPCS: 36415; 71045; 74018; 74176; 80053; 80307; 81003; 82150; 83540; 83550; 83690; 83735; 83880; 84484; 84550; 85025; 85610; 85651; 85730; 86140; 86850; 86900; 86901; 87086; 87181; 93005; 93306; 96361; 96365; 96375; 99285; J2405; J7030; J8499